=== PATIENT | female | born 1980 | race Caucasian/White ===

== ENCOUNTER → 2017-11-18 | Outpatient (CLI) | payer SELFPAY ==
[~2017-11-18] MED LIST: ACIPHX20PT PO; ALPR-429 PO; BAC15T TOP; CEP500 PO; LORA-1455 PO
--- NOTE | 2017-11-18 16:28 | RADIOLOGY IMAGING REPORT ---
FACILITY: [facility] PATIENT NAME: Leila Tubbs : 1980 MR: [id number] V: [id number] EXAM DATE: ORDERING PHYSICIAN: JACE HURTADO TECHNOLOGIST: [facility] Patient: Leila Tubbs : 1980 Visit/Account:[id number] Date of Sevice: 11/18/2017 Venous Doppler ultrasound left lower extremity Indication: Leg pain and swelling. Comparison: None Available Findings: Duplex Doppler and color flow imaging was performed. The common femoral, femoral, and popl iteal veins are all patent and compressible with normal Doppler wave forms. There are normal respons es to augmentation. The posterior tibial and peroneal veins are patent in the calf. The proximal greater saphenous vein is also normal. IMPRESSION: 1. No evidence of deep venous thrombosis of the left lower extremity. Report Dictated By: Bryant Marcano DO at 11/18/2017 4:21 PM Report E-Signed By: Bryant Marcano DO at 11/18/2017 4:23 PM WSN:[email or web address]
== END ==
LOC: US 07:13
PROVIDERS: ATTEND Family Medicine
DX: M79.605 Pain in left leg (principal)